=== PATIENT | male | born 1990 | race Two or more races ===

== ENCOUNTER 2023-09-15 07:17 | Emergency (ER) | payer MEDICAID ==
[~2023-09-15] VITALS: Ht 165.1 cm; Wt 103.4 kg
[~2023-09-15 07:17] MED LIST: ALBUAER3 IN; BUPR150T18 PO; ESCI5TAB PO; ESOM40CA39 PO
[2023-09-15 07:32] LABS: Basophils # (auto) 0.1 10 ^3/uL (0-0.2); Basophils % (auto) 1.3 % (0.0-2.0); Eosinophils # (auto) 0 10 ^3/uL (0-0.8); Eosinophils % (auto) 0.2 % (0.0-7.0); Hematocrit 51.9 % (41.0-53.0); Hemoglobin 17.2 g/dL (13.5-17.5); Lymphocytes # (auto) 3.1 10 ^3/uL (0.4-5.4); Lymphocytes % (auto) 29.6 % (10.0-50.0); Mean Corpuscular Hgb Conc. 33.1 g/dL (32.0-36.0); Mean Corpuscular Volume 90.6 fL (80.0-100.0); Monocytes # (auto) 0.8 10 ^3/uL (0-1.3); Monocytes % (auto) 7.5 % (0.0-12.0); Neutrophils # (auto) 6.4 10 ^3/uL (1.6-8.6); Neutrophils % (auto) 61.4 % (37.0-80.0); Nucleated Red Blood Cells % 0.2 %; Red Blood Cells 5.72 10^6/uL (4.5-5.90); Red Cell Distribution Width 17.4 % (11.8-14.3); White Blood Cell 10.4 10^3/uL (4.4-10.8)
[2023-09-15] MEDS ORDERED: THIAMINE 100mg/ml INJ (200mg/2ml VIAL) IV ONE (07:45)
[2023-09-15] MEDS ORDERED: SODIUM CHLORIDE 0.9% 1,000 ML IV ONE (07:45)
[2023-09-15] MEDS ORDERED: LORazepam 2MG/ML-1ML VIAL IV ONE (07:45)
[2023-09-15] MEDS ORDERED: SODIUM CHLORIDE 0.9% 1,000 ML IVB ONE (07:45)
[2023-09-15 08:07] LABS: Alanine Aminotransferase 99 U/L (7-40); Albumin 4.4 g/dL (3.2-4.8); Alkaline Phosphatase 129 U/L (46-116); Anion Gap 18 (5-15); Aspartate Aminotransferase 96 U/L (13-40); Carbon Dioxide 20 mmol/L (20-30); Chloride 101 mmol/L (98-107); Glucose 150 mg/dL (74-106); Potassium 3.1 mmol/L (3.5-5.1); Sodium 139 mmol/L (136-145)
[2023-09-15 08:08] LABS: Bilirubin, Total 1.1 mg/dL (0.2-1.0); Total Protein 7.4 g/dL (5.7-8.2)
[2023-09-15 08:12] LABS: BUN/Creatinine Ratio 5.3 (10.0-20.0); Blood Urea Nitrogen < 5 mg/dL (9-23)
[2023-09-15 08:20] VITALS: O2SAT 94
[2023-09-15] MEDS ORDERED: diazePAM 5 MG TAB PO ONE (08:30)
[2023-09-15] MEDS ORDERED: POTASSIUM EFFERVESENT TAB 25 MEQ PO ONE (08:30)
[2023-09-15 09:46] LABS: Urine Bacteria NONE SEEN /hpf (None Seen); Urine Blood Negative /uL (Negative); Urine Clarity Clear (Clear); Urine Color Yellow (Yellow); Urine Protein, UAD Negative (Negative); Urine Specific Gravity 1.008 (1.001-1.035); Urine Sperm PRESENT /hpf (None Seen); Urine Urobilinogen Normal (Negative); Urine WBC 1 /hpf (0 - 3)
[2023-09-15 10:00] VITALS: BP 138/90; PULSE 98; RESP 18; O2SAT 95
[2023-09-15] MEDS ORDERED: HYDR25CA PO (21:35)
[2023-09-15] MEDS ORDERED: ZOFR4T PO (21:35)
== END 2023-09-15 10:25 | disposition home or self-care (01) ==
LOC: ER 07:17
DX: F10.10 Alcohol abuse, uncomplicated (principal); F41.9 Anxiety disorder, unspecified; J45.909 Unspecified asthma, uncomplicated; K21.9 Gastro-esophageal reflux disease without esophagitis; Z79.899 Other long term (current) drug therapy; Y90.9 Presence of alcohol in blood, level not specified
CPT/HCPCS: 36415; 80053; 81001; 84484; 85025; 93005; 96361; 96374; 99284; J3411; J7030

== ENCOUNTER 2023-09-15 20:51 | Emergency (ER) | payer MEDICAID ==
[~2023-09-15] VITALS: Ht 165.1 cm; Wt 103.0 kg
[2023-09-15] MEDS ORDERED: KETOROLAC TROMETH 60MG/2ML VIAL IM ONE (21:30)
[2023-09-15] MEDS ORDERED: LORazepam 2MG/ML-1ML VIAL IM ONE (21:30)
[2023-09-15] MEDS ORDERED: FAMOTIDINE 20 MG TAB PO ONE (21:30)
[2023-09-15] MEDS ORDERED: diphenhdrAMINE HCL 25 MG CAP PO ONE (21:30)
[2023-09-15] MEDS ORDERED: ONDANSETRON ODT 4 MG TAB PO ONE (21:30)
[2023-09-15] MEDS ORDERED: HYDR25CA PO (21:35)
[2023-09-15] MEDS ORDERED: ZOFR4T PO (21:35)
[2023-09-15 22:56] VITALS: BP 146/75; PULSE 103; RESP 20; TEMP 98.5; O2SAT 96
== END 2023-09-15 22:57 | disposition home or self-care (01) ==
LOC: ER 20:51
DX: F41.9 Anxiety disorder, unspecified (principal); F10.10 Alcohol abuse, uncomplicated; J45.909 Unspecified asthma, uncomplicated; Z79.899 Other long term (current) drug therapy; Y90.9 Presence of alcohol in blood, level not specified
CPT/HCPCS: 96372; 99284; J1885; J2060; Q0162

== ENCOUNTER 2024-08-10 00:05 | Emergency (ER) | payer MEDICAID ==
[~2024-08-10] VITALS: Ht 165.1 cm; Wt 100.0 kg
[~2024-08-10 00:05] MED LIST changes: +HYDR25CA PO; +ZOFR4T PO
[2024-08-10 00:47] VITALS: PULSE 106; RESP 16; TEMP 98.9; O2SAT 96
--- NOTE | 2024-08-10 00:48 | ED.PDOC ---
History of Present Illness HPI Comments 34 y/o M, with a Hx of asthma, anxiety, depression, GERD, and EtOH abuse, presents with c/o generalized tremors, today. Patient reports recent onset of tremors and suspects on having EtOH withdrawal and is seeking assistance regarding his EtOH dependency. Patient comments drinking vodka, today, in his vehicle after driving to the ED. Patient denies having any shortness of breath, abdominal pain, nausea, vomiting, or other associated symptoms or modifiers at this time. Chief Complaint: ETOH Time Seen by MD: 00:30 Primary Care Provider: RAMONITA Reviewed Notes: Nurses Notes, Medications, Allergies Allergies: Coded Allergies: NO KNOWN ALLERGIES (Unverified , 09/10/12) Home Meds Active Scripts Ondansetron Odt 4MG Tab (ZOFRAN PO) 4 Mg Tb, 4 MG PO TID, #14 TAB ODT TAB-DISSOLVE IN MOUTH, THEN SWALLOW Prov:WHIT CHEN MD 09/15/23 Hydroxyzine Pamoate (Vistaril) 25 Mg Cap, 1 CAP PO BID, #60 CAP 1 Refill Prov:WHIT CHEN MD 09/15/23 Reported Medications Albuterol Sulfate (VENTOLIN MDI) 90 Mcg Ih, 90 MCG IN, INH 06/19/23 Escitalopram Oxalate (Lexapro) 5 Mg Tab, 1 TAB PO DAILY, #30 TAB 2 Refills 06/19/23 Bupropion Hcl (Bupropion Hcl Xl) 150 Mg Tab, 1 TAB PO QAM, #30 TAB 2 Refills 06/19/23 Esomeprazole Magnesium Trihydr (Nexium) 40 Mg Cap, 1 CAP PO DAILY, #30 CAP 5 Refills 06/19/23 Information Source: Patient Mode of Arrival: Ambulatory Severity: Moderate Timing: Hours Duration: Since onset Prehospital treatment: None Past Medical History PAST MEDICAL HISTORY: Anxiety, Asthma, Depression, GERD Surgical History: Denies all surgeries Family History Family History: Family hx of DM Social History Smoker: Non-Smoker Alcohol: Heavy Drugs: Marijuana Lives In: Home Constitutional: denies: chills, diaphoresis, fatigue, fever, malaise, sweats, weakness, others EENTM: denies: blurred vision, double vision, ear bleeding, ear discharge, ear drainage, ear pain, ear ringing, eye pain, eye redness, hearing loss, mouth pain, mouth swelling, nasal discharge, nose bleeding, nose congestion, nose pain, photophobia, tearing, throat pain, throat swelling, voice changes, others Respiratory: denies: cough, hemoptysis, orthopnea, SOB at rest, shortness of breath, SOB with excertion, stridor, wheezing, others Cardiovascular: denies: chest pain, dizzy spells, diaphoresis, Dyspnea on exertion, edema, irregular heart beat, left arm pain, lightheadedness, palpitations, PND, syncope, others Gastrointestinal: denies: abdomen distended, abdominal pain, blood streaked bowels, constipated, diarrhea, dysphagia, difficulty swallowing, hematemesis, melena, nausea, poor appetite, poor fluid intake, rectal bleeding, rectal pain, vomiting, others Genitourinary: denies: burning, dysuria, flank pain, frequency, hematuria, incontinence, penile discharge, penile sore, pain, testicle pain, testicle swelling, urgency, others Neurological: reports: tremors; denies: dizziness, fainting, headache, left sided numbness, left sided weakness, numbness, paresthesia, pre-existing deficit, right sided numbness, right sided weakness, seizure, speech problems, tingling, weakness, others Musculoskeletal: denies: back pain, gout, joint pain, joint swelling, muscle pain, muscle stiffness, neck pain, others Integumetry: denies: bruises, change in color, change in hair/nails, dryness, laceration, lesions, lumps, rash, wounds, others Allergic/Immunocompromised: denies: Difficulty Healing, Frequent Infections, Hives, Itching, others Hematologic/Lymphatic: denies: anemia, blood clots, easy bleeding, easy bruising, swollen glands, others Endocrine: denies: excessive hunger, excessive sweating, excessive thirst, excessive urination, flushing, intolerance to cold, intolerance to heat, unexplained weight gain, unexplained weight loss, others Psychiatric: denies: anxiety, bipolar disorder, depression, hopeless, panic disorder, schizophrenia, sleepless, suicidal, others Physical Exam General Appearance: Moderate Distress HEENT: Normal ENT Inspection, Pharynx Normal, TMs Normal Neck: Full Range of Motion, Non-Tender, Normal, Normal Inspection Respiratory: Chest Non-Tender, Lungs Clear, No Accessory Muscle Use, No Respiratory Distress, Normal Breath Sounds Cardiovascular: No Edema, No JVD, No Murmur, No Gallop, Normal Peripheral Pulses, Regular Rate/Rhythm Breast Exam: Deferred Gastrointestinal: No Organomegaly, Non Tender, No Pulsatile Mass, Normal Bowel Sounds, Soft Genitalia: Deferred Pelvic: Deferred Rectal: Deferred Extremities: No calf tenderness, Normal capillary refill, Normal inspection, Normal range of motion, Non-tender, No pedal edema Musculoskeletal : Apperance: Normal Neurologic: Alert, sample washer II-XII nml as Tested, No Motor Deficits, Normal Affect, Normal Mood, No Sensory Deficits Cerebellar Function: Normal Reflexes: Normal Skin: Dry, Normal Color, Warm Peripheral Pulses: 3+ Radial (R), 3+ Radial (L) Lymphatic: No Adenopathy Was a procedure done? Was a procedure done?: No Differential Dx Considerations may include: substance withdrawal, EtOH withdrawal, EtOH abuse, delirium tremens X-Ray, Labs, Meds, VS Vital Signs Date Time Temp Pulse Resp B/P (MAP) Pulse Ox O2 Delivery O2 Flow Rate FiO2 08/10/24 00:47 106 16 96 Room Air* 0 21 08/10/24 00:47 98.9 106 16 133/93 (106) 96 98.9 08/10/24 00:31 98.5 122 18 141/93 (109) 92 Lab Test 08/10/24 01:10 Range/Units Plasma/Serum Blood Alcohol 284.4 H <10 mg/dL Patient alert. Came in for alcohol withdrawal. Vitals stable. Answering all questions. Blood alcohol level elevated. Establish intravenous access. Was given fluids pain Was given thiamine. Reviewed his history. Explained to the patient treatment plan. Time of 1ST Reevaluation: 01:00 Reevaluation 1ST: Unchanged Patient Education/Counseling: Diagnosis, Treatment Family Education/Counseling: No Family Present Departure 1 Departure Time of Disposition: 02:03 Impression: Primary Impression: Alcohol abuse Additional Impression: Alcohol withdrawal Qualified Codes: F10.930 - Alcohol use, unspecified with withdrawal, uncomplicated Disposition: ADMITTED INPATIENT Admit to: Med Surg Condition: Guarded Critical Care Note Critical Care Time?: No Stability Stability form required: No Heart Score Heart Score: Heart Score Response (Comments) Value History N/A 0 EKG N/A 0 Age N/A 0 Risk Factors N/A 0 Troponin N/A 0 Total 0 I personally scribed for WESTLEY,MOISES MD ([email or web address]) on 08/10/24 at 00:48. E lectronically submitted by Jame Leal ([email or web address]). MOISES CHRISTY MD Aug 10, 2024 00:48
[2024-08-10] MEDS: LORazepam 2MG/ML-1ML VIAL IV PRN (02:11)
[2024-08-10] MEDS: SODIUM CHLORIDE 0.9% 1,000 ML IV ONE (02:31)
[2024-08-10] MEDS: THIAMINE 100mg/ml INJ (200mg/2ml VIAL) IV ONE (02:32)
[2024-08-10 06:00] VITALS: BP 102/63; PULSE 93; RESP 25; O2SAT 95
== END 2024-08-10 06:48 | disposition home or self-care (01) ==
LOC: ER 00:05
DX: F10.139 Alcohol abuse with withdrawal, unspecified (principal); F32.A Depression, unspecified; F41.9 Anxiety disorder, unspecified; J45.909 Unspecified asthma, uncomplicated; K21.9 Gastro-esophageal reflux disease without esophagitis; F12.10 Cannabis abuse, uncomplicated; Z79.899 Other long term (current) drug therapy; Y90.8 Blood alcohol level of 240 mg/100 ml or more
CPT/HCPCS: 36415; 80320; 96361; 96374; 96375; 99285; J2060; J3411; J7030